=== PATIENT | female | born 1955 | race Caucasian/White ===

== ENCOUNTER → 2018-11-26 12:36 | Day surgery (SDC) | payer OTHER ==
[~2018-11-26 12:36] MED LIST: Acetaminophen TAB* 325 MG PO PRN; Buffered Lidocaine 1% SYRIN* 1 ML/SYRINGE INTRADERM ONE; Dexamethasone IV* 4 MG/ML 1 ML (4 MG) IV SLOW PU ONE; Dexamethasone IV* 4 MG/ML 1 ML (4 MG) ONE; EPHEDrine (Pressors)* 50 MG/ML VIAL ONE; Famotidine IV* 10 MG/ML 2 ML (20 mg) IV ONE; Famotidine IV* 10 MG/ML 2 ML (20 mg) ONE; HYDROcodone/ACETAMIN 5-325 MG* 1 TAB PO PRN; Lactated Ringers 1000 ML Bag* 1,000 ML IV SCH; Lidocaine 2% PF * 5 ML VIAL ONE; Midazolam* 1 MG/ML 2 ML VIAL (2 MG) ONE; Naloxone* 0.4 MG/ML 1 ML VIAL IV PRN; Ondansetron INJ* 2 MG/ML VIAL IV PRN; Propofol* 10 MG/ML 20 ML BTL ONE; fentaNYL* 50 MCG/ML 2 ML VIAL (100 MCG VIAL) IV PRN; fentaNYL* 50 MCG/ML 2 ML VIAL (100 MCG VIAL) ONE; oxyCODONE/Acetamin 5/325 MG* TAB PO PRN
[2018-11-26 18:06] VITALS: BP 119/68
--- NOTE | 2018-11-27 15:28 | PRO ---
CC: Brynn Bianchi MD * DATE OF PROCEDURE: 11/26/18 - [facility] PROCEDURE: EGD with biopsy polypectomy. REFERRING PROVIDER: Brynn Bianchi MD INDICATIONS: The patient had several small gastric polyps removed in 2008. Two of these polyps demonstrated adenomatous change. The third polyp was a fundic gland polyp. Unfortunately, the patient developed severe bleeding after the polypectomy and required ICU admission and repeat EGD with clip placement. She is understandably anxious about repeat procedure, although I did recommend a repeat EGD given the fact that there were some adenomatous changes in her prior polyps. She has transitioned from Coumadin to Lovenox and this was held the morning of the procedure. MEDICATIONS GIVEN: By Anesthesia. DESCRIPTION OF PROCEDURE: Full disclosure of risks was reviewed with the patient as detailed on the consent form. The patient was placed in the left lateral decubitus position and monitored with continuous pulse oximetry, capnography, interval blood pressure monitoring, and direct observation. A bite -block was placed between the patient's teeth. An adult gastroscope was then advanced into the patient's esophagus, stomach and into the distal duodenum. Findings and interventions are described below. FINDINGS: Esophagus was a normal tubular structure without rings or strictures. GE junction was regular and occurred at 42 cm. Scope was then advanced into the stomach. Stomach was examined in the forward and retroflex views. There were several small gastric polyps. Three of these polyps were removed with jumbo biopsy forceps. These polyps were all 3 to 4 mm in size. The scope was then advanced into the duodenum to at least the third portion. In the duodenum, in the second and third portion, there was a large smooth submucosal appearing nodule. This nodule was semi-mobile and soft when probed with the biopsy forceps. Small biopsy bite was obtained and yellow liquid was seen extruding from the biopsy sites, suggestive of lipoma. Scope was then withdrawn from the patient. The patient tolerated the procedure well and was recovered in the GI recovery area. IMPRESSION: 1. Complete upper endoscopy to distal duodenum. 2. Three small polyps removed with jumbo biopsy forceps. 3. 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 FOLLOWUP: 1. Await pathology. 2. Endoscopic appearance most consistent with lipoma and duodenum. We will await pathology. If there is any question of diagnosis, then I would consider a referral to [facility] for an endoscopic ultrasound. 3. Proceed with colonoscopy as planned. Thank you very much for this referral. [id number]/[facility] #: [id number] [place]
--- NOTE | 2018-11-27 16:02 | PRO ---
CC: Brynn Bianchi MD.* DATE OF PROCEDURE: 11/26/18 [facility] REFERRING PROVIDER: Brynn Bianchi MD. PROCEDURE: Colonoscopy with jumbo biopsy polypectomy. INDICATION: The patient is due for colon cancer screening. Colonoscopy in 2008 notable for only hyperplastic polyp. No family history of colon polyps or colon cancer. The patient's Coumadin was transitioned to Lovenox. She held the Lovenox this morning. MEDICATIONS GIVEN: By Anesthesia. DESCRIPTION OF PROCEDURE: Full disclosures of risks was reviewed with the patient as detailed on the consent form. The patient was placed in the left lateral decubitus position and monitored with continuous pulse oximetry, capnography, interval blood pressure monitoring and direct observation. After anorectal examination was performed, the adult colonoscope was inserted into the rectum and slowly advanced forward to the terminal ileum. Complete views of the cecum were obtained including the medial wall between the IC valve and the appendiceal orifice. Photodocumentation of landmarks obtained. Quality of the prep was good. Careful inspection was made as the colonoscope was withdrawn. Retroflexion was performed in the rectum. Findings and interventions are described below. FINDINGS: Anorectal exam was unremarkable. The scope was inserted into the rectum and slowly advanced forward. Once in the cecum, the terminal ileum was intubated x5 cm. Ileal mucosa was normal in appearance. The scope was then withdrawn back into the cecum and then slowly throughout the length of the colon. In the ascending colon, there was a 4 mm polyp removed with jumbo biopsy forceps. There was no significant diverticulosis. In the rectum, there were 2 polyps measuring 3 mm each. These polyps were removed with jumbo biopsy forceps. Retroflexion was attempted in the rectum but was unsuccessful due to a narrow rectal vault. Careful inspection was made as the scope was slowly withdrawn through the anal canal, there were small internal hemorrhoids appreciated. The patient tolerated the procedure well and was recovered in the GI recovery area. IMPRESSION: 1. Complete colonoscopy to the terminal ileum. 2. Three tiny polyps removed as above. FOLLOWUP: 1. Await pathology. 2. I agree with restarting Lovenox tomorrow morning with plan to transition back to Coumadin as per Dr. Harrison. Thank you very much for this referral. [id number]/[facility] #: [id number] [facility]
== END | disposition home or self-care (01) ==
LOC: OR 12:36
PROVIDERS: ATTEND Internal Medicine Gastroenterology
DX: Z12.11 Encounter for screening for malignant neoplasm of colon (principal); K31.7 Polyp of stomach and duodenum; K63.5 Polyp of colon; D12.2 Benign neoplasm of ascending colon; Z86.010 Personal history of colon polyps; Z79.01 Long term (current) use of anticoagulants; Z86.73 Personal history of transient ischemic attack (TIA), and cerebral infarction without residual deficits; E78.5 Hyperlipidemia, unspecified; F41.9 Anxiety disorder, unspecified
CPT/HCPCS: 88305; J1100; J2250; J2704; J3010